=== PATIENT | female | born 1945 | race African-American/Black ===

== ENCOUNTER → 2017-03-11 | Outpatient (CLI) | payer MEDICARE, OTHER ==
[~2017-03-11] MED LIST: ASPIRIN PO; CALCIUM + D 6001 TA1 PO; CALCIUM PO; COUMADIN PO; ENFOLAST TABLE1 EACH PO; LISINOPRIL-HCTZ1 T18 PO; MULTI-VITAMIN1 TAB PO; PERCOCET7.5 PO; PRAVACHOL PO; PRILOSEC PO; RANITIDINE HCL150 M1 PO; SIMVASTATIN40 MG PO; VIT D PO; VIT E PO; VITAMIN B12-FO1 EACH PO; VITAMIN D1000 UNI1 PO; ZESTORETIC 10/11 TAB PO; [UNRECOGNIZED DRUG - OTHER] PO
--- NOTE | ~2017-03-11 | US6 ---
[facility] A Service of [facility] RADIOLOGY TEXT RESULTS PATIENT: DESTINY SCOTT LOCATION: [facility] : 47 UNIT #: [id number] AGE: [address]: Nory Nolen MD SEX: F ORDER DR: [id number] [facility] [address] [place], [place] [address] [id number] O MR#: [id number] Acc #: [id number] NAME: DESTINY SCOTT : 1945 SEX: F STUDY DATE/TIME: 03/11/2017 10:10 UNIT: [facility] ROOM: STUDY DESCRIPTION: US Abdominal Limited Attending Physician: Nory Nolen M.D. Referring Physician: Nory Nolen M.D. Ordering Physician: Nory Nolen M.D. Primary Care Physician: Nory Nolen M.D. MEDICAL IMAGING REPORT This report is preliminary unless electronic signature is present EXAM Left upper quadrant ultrasound INDICATIONS Left upper quadrant fullness and tightness for 6 months. TECHNIQUE French-scale and color Doppler sonographic images were obtained through the left upper quadrant. FINDINGS Patient's spleen appears unremarkable it measures about 9 cm in length. No splenic lesions are identified. Left kidney is also normal in appearance with no solid or cystic renal masses seen and no hydronephrosis identified. No suspicious masses are identified within the left upper quadrant. IMPRESSION No etiology for the patient's left upper quadrant symptomatology is identified. If symptoms persist further evaluation with CT could be considered. Dictated by... Karina Mead M.D. THIS IS AN ELECTRONICALLY VERIFIED REPORT Karina Mead M.D. at 03/12/2017 5:23 PM AFF/rnr TD: 03/11/2017 16:48 JOB #: [id number] MEDICAL IMAGING REPORT [facility] A Service [facility] RADIOLOGY TEXT RESULTS PATIENT: DESTINY SCOTT LOCATION: [facility] : 47 UNIT #: [id number] AGE: [address]: Nory Nolen MD SEX: F ORDER DR: Page 1 of 1 COPY
--- NOTE | ~2017-03-11 | MY29 ---
[facility] A Service of [facility] RADIOLOGY TEXT RESULTS PATIENT: DESTINY SCOTT LOCATION: [facility] : 47 UNIT #: [id number] AGE: [address]: Nory Nolen MD SEX: F ORDER DR: [id number] [facility] [address] [place], [place] [address] [id number] O MR#: [id number] Acc #: [id number] NAME: DESTINY SCOTT : 1945 SEX: F STUDY DATE/TIME: 03/11/2017 10:10 UNIT: [facility] ROOM: STUDY DESCRIPTION: MY RG SCREENING W/ CAD BILAT Attending Physician: Nory Nolen M.D. Referring Physician: Nory Nolen M.D. Ordering Physician: Nory Nolen M.D. Primary Care Physician: Nory Nolen M.D. MEDICAL IMAGING REPORT This report is preliminary unless electronic signature is present EXAM Digital screening mammogram 03/11/2017 HISTORY 71-year-old woman positive family history, grandmother postmenopausal. Annual screen. COMPARISON Mammograms date to 04/16/2006 with most recent 01/22/2016 FINDINGS Digital imaging of each breast was completed utilizing a two-view examination of each breast in craniocaudal and mediolateral-oblique projections. Review and interpretation of digital mammograms include a second review in conjunction with FDA-approved CAD device. There is a normal parenchymal presentation bilaterally consistent with the patient's age. There are no breast masses imaged and no parenchymal asymmetry is visualized. There are no suspicious microcalcifications and I see no focal architectural disturbance. IMPRESSION Negative screening digital mammogram. One-year followup recommended. Patients over the age of 40 are entered into a reminder system with target due date for the next mammogram. A result letter will also be sent to the patient. BIRADS: 1 Negative Dictated by... Anirudh Garcia M.D. [facility] A Service of [facility] RADIOLOGY TEXT RESULTS PATIENT: DESTINY SCOTT LOCATION: [facility] : 47 UNIT #: [id number] AGE: [address]: Nory Nolen MD SEX: F ORDER DR: THIS IS AN ELECTRONICALLY VERIFIED REPORT Anirudh Garcia M.D. at 03/11/2017 3:49 PM [place] TD: 03/11/2017 15:20 JOB #: [id number] MEDICAL IMAGING REPORT Page 1 of 1 COPY
== END | disposition home or self-care (01) ==
LOC: CWCC 09:29
DX: Z12.31 Encounter for screening mammogram for malignant neoplasm of breast (principal); Z80.3 Family history of malignant neoplasm of breast; R10.9 Unspecified abdominal pain; M89.9 Disorder of bone, unspecified
CPT/HCPCS: 76705; G0202

== ENCOUNTER → 2017-03-12 | Outpatient (CLI) | payer MEDICARE, OTHER ==
--- NOTE | ~2017-03-12 | BD1 ---
[facility] A Service of [facility] RADIOLOGY TEXT RESULTS PATIENT: DESTINY SCOTT LOCATION: [facility] : 47 UNIT #: [id number] AGE: [address]: Nory Nolen MD SEX: F ORDER DR: [id number] [facility] [address] [place], [place] [address] [id number] O MR#: [id number] Acc #: [id number] NAME: DESTINY SCOTT : 1945 SEX: F STUDY DATE/TIME: 03/12/2017 9:45 UNIT: [facility] ROOM: STUDY DESCRIPTION: BD Dexa Bone Dens 1+ Site Attending Physician: Nory Nolen M.D. Referring Physician: Nory Nolen M.D. Ordering Physician: Nory Nolen M.D. Primary Care Physician: Nory Nolen M.D. MEDICAL IMAGING REPORT This report is preliminary unless electronic signature is present EXAM Bone density spine hip 03/12/2017 HISTORY Postmenopausal. Prior smoker. Takes calcium. FINDINGS Bone density scanning performed upper 4 lumbar vertebral segments at proximal left femur in this 192-pound 71-year-old -[place] female. Most recent comparison 12/19/2014. L1-L4: Total bone density 0.955 g/cm2 for a T-score of 1.87 deviation below mean for reference population normal young individuals and Z-score 0.6 standard deviations above the mean for age-match population. Compared to 12/19/2014 there has been a 0.7% decrease in bone mineral density in this region. PROXIMAL LEFT FEMUR: Total bone mineral density 0.881 g/cm2 for T-score 1.0 standard deviation below the mean for reference population normal young individuals and Z-score 0.2 standard deviations above the mean for age-matched population. Left femoral neck bone mineral density 0.803 g/cm2 for T-score 1.0 standard deviations below mean for reference population normal young individuals and Z-score 0.4 standard deviations above the mean for age-match population. Using total bone mineral density as trending value there has been a statistically significant 9.4% decrease in proximal left femoral bone low density compared to December 2014. IMPRESSION 1. Osteopenia in the upper 4 lumbar vertebral segments overall. Patient felt to be at increased risk for fracture. Treatment options may be considered. Continued surveillance is recommended. 2. Statistically significant decrease in total bone mineral density proximal left femur compared to December 2014. Please see complete STS. [facility] A Service of [facility] RADIOLOGY TEXT RESULTS PATIENT: DESTINY SCOTT LOCATION: [facility] : 47 UNIT #: [id number] AGE: [address]: Nory Nolen MD SEX: F ORDER DR: trending data in body of report above. Dictated by... Mitch Ribeiro M.D. THIS IS AN ELECTRONICALLY VERIFIED REPORT Mitch Ribeiro M.D. at 03/13/2017 6:15 PM DARRICK/[place] TD: 03/12/2017 15:52 JOB #: [id number] MEDICAL IMAGING REPORT Page 1 of 1 COPY
== END | disposition home or self-care (01) ==
LOC: CWCC 09:20
DX: Z13.820 Encounter for screening for osteoporosis (principal); M89.9 Disorder of bone, unspecified; M85.88 Other specified disorders of bone density and structure, other site; Z78.0 Asymptomatic menopausal state
CPT/HCPCS: 77080

== ENCOUNTER → 2017-04-09 | Outpatient (CLI) | payer MEDICARE, OTHER | END | disposition home or self-care (01) | LOC: CECH 12:26 | DX: R07.89 Other chest pain (principal); E78.5 Hyperlipidemia, unspecified; I10 Essential (primary) hypertension | CPT/HCPCS: 93306 ==